=== PATIENT | male | born 1960 | race African-American/Black ===

== ENCOUNTER 2022-01-20 19:01 | Emergency (ER) | payer OTHER ==
[2022-01-20] MEDS ORDERED: Acetaminophen 325 MG TAB ONE (19:30)
== END 2022-01-20 20:04 ==
LOC: NAV ERS 19:01
DX: M25.571 Pain in right ankle and joints of right foot (principal); I10 Essential (primary) hypertension; I48.91 Unspecified atrial fibrillation; I25.10 Atherosclerotic heart disease of native coronary artery without angina pectoris; K21.9 Gastro-esophageal reflux disease without esophagitis; Z79.899 Other long term (current) drug therapy; Z79.01 Long term (current) use of anticoagulants